=== PATIENT | female | born 1960 ===

== ENCOUNTER 2018-06-16 07:47 | Outpatient (CLI) | payer OTHER ==
[2018-06-16] MEDS ORDERED: Gadobenate Dimeglumine 529 MG/1 ML (20ML VIAL) ONE (09:00)
--- NOTE | 2018-06-16 10:05 | MRI ---
MRI brain with and without contrast: (Sella protocol) 06/16/2018 HISTORY: 58-year-old female with enlarged sella turcica. Evaluate for pituitary mass. TECHNIQUE: Multiplanar, multisequence MRI of the brain performed pre- and post-IV injection of 10 mL MultiHance gadolinium-based contrast agent. In addition to whole brain sequences, thin slices were obtained thro ugh the sella turcica. FINDINGS: The sella turcica is enlarged. The superior 1/2 - 2/3 of the sella turcica are filled with CSF. The p ituitary gland is at the floor of the sella turcica, mildly partially flattened. There is no suprasel lar mass, and no extrinsic compression upon the optic chiasm. There is no pituitary macroadenoma. Cav ernous sinuses are normal. Infundibular stalk is at midline. There are a few punctate scattered T2 hyperintensities in the cerebral white matter consistent with m inimal chronic ischemic white matter changes, typical for this age group. No other intra-axial signal abnormality, recent or remote intra-axial hemorrhage, abnormal intra-axial enhancement (other than a tiny DVA at the left temporoparietal region), mass, mass effect, midline shift, or extra-axial fluid collection. Ventricles are normal in size and configuration. IMPRESSION: 1) The sella. This accounts for the enlargement of the sella noted by the referring physician at [facility] imaging study. 2) no neoplastic pituitary mass 3) otherwise negative
== END 2018-06-16 07:48 | disposition home or self-care (01) ==
LOC: SCSMRI 07:47
PROVIDERS: ATTEND Otolaryngology Otolaryngic Allergy
DX: E23.6 Other disorders of pituitary gland (principal)
CPT/HCPCS: 70553; 82565; A9577